=== PATIENT | female | born 1975 | race African-American/Black ===

== ENCOUNTER 2023-02-13 09:12 | Inpatient (IN) | payer SELFPAY ==
[~2023-02-13] VITALS: Ht 162.6 cm; Wt 65.8 kg
[2023-02-13] MEDS ORDERED: SODIUM CHLORIDE 0.9% 1,000 ML IV ONE (10:15)
[2023-02-13 13:27] LABS: BASOPHILS % 0.6 % (0.0-2.0); EOSINOPHILS % 2.5 % (0.0-5.0); HEMATOCRIT. 41.9 % (36.0-48.0); HEMOGLOBIN. 14.3 g/dL (12.0-16.0); LYMPHOCYTES % 28.7 % (20.0-50.0); MEAN CORPUSCULAR HEMOGLOBIN 30.8 pg (28.0-32.0); MEAN CORPUSCULAR VOLUME 90.2 fL (81.0-99.0); MEAN PLATELET VOLUME 8.3 fl (7.4-10.4); NEUTROPHILS % 61.2 % (40.0-76.0); PLATELET 392 x1000/uL (130-400); RED BLOOD CELL COUNT 4.64 mill/uL (4.2-5.4); RED CELL DISTRIBUTION WIDTH 15.1 % (11.6-14.6)
[2023-02-13 13:29] LABS: CHLORIDE 104 mEq/L (98-107)
[2023-02-13 13:42] LABS: HCG SCREEN NEGATIVE
[2023-02-13 14:05] LABS: ETHANOL BLOOD < 10 mg/dL
[2023-02-13] MEDS ORDERED: ZOLPIDEM TARTRATE 5MG TABLET PO PRN (14:30)
[2023-02-13] MEDS ORDERED: ACETAMINOPHEN 325MG TABLET PO PRN ×2 (14:30)
[2023-02-13] MEDS ORDERED: IPRATROPIUM/ALBUTEROL 0.5-3(2.5)MG/3ML NEB NEB PRN (14:30)
[2023-02-13] MEDS ORDERED: CLONIDINE 0.1MG TABLET PO PRN (14:30)
[2023-02-13] MEDS ORDERED: ONDANSETRON HCL 4MG/2ML INJ IV PRN (14:30)
[2023-02-13] MEDS ORDERED: DOCUSATE SODIUM 100MG CAPSULE PO PRN (14:30)
[2023-02-13] MEDS ORDERED: KETOROLAC 15MG/ML VIAL IV PRN (14:30)
[2023-02-13] MEDS ORDERED: GUAIFENESIN 200MG/10ML SUGAR FREE UDC PO PRN (14:30)
[2023-02-13] MEDS ORDERED: MAGNESIUM/ALUMINUM HYDROXIDE/SIMETHICONE 30ML UDC PO PRN (14:30)
[2023-02-13] MEDS ORDERED: NITROGLYCERIN 0.4MG TABLET SL SL PRN (14:45)
[2023-02-13 16:37] LABS: VITAMIN B12 SERUM 230 pg/mL (211-911)
[2023-02-13] MEDS: ENOXAPARIN 40MG/0.4ML SYR SUBCUT SCH (17:41)
[2023-02-13 18:09] LABS: T4 FREE 1.43 ng/dL (0.76-1.46)
[2023-02-13 19:00] VITALS: BP 133/92
[2023-02-13] MEDS: FAMOTIDINE 20MG TABLET PO SCH (21:00)
[2023-02-14] MEDS: ASPIRIN 325MG EC TABLET PO SCH (09:00)
[2023-02-14] MEDS: FAMOTIDINE 20MG TABLET PO SCH ×2 (09:00→21:00)
[2023-02-14] MEDS: ENOXAPARIN 40MG/0.4ML SYR SUBCUT SCH (14:02)
[2023-02-14 20:00] VITALS: BP 136/88
[2023-02-15 08:00] VITALS: BP 139/76
[2023-02-15] MEDS: FAMOTIDINE 20MG TABLET PO SCH ×2 (09:36→20:46)
[2023-02-15] MEDS: ASPIRIN 325MG EC TABLET PO SCH (09:36)
[2023-02-15] MEDS: ENOXAPARIN 40MG/0.4ML SYR SUBCUT SCH (14:30)
[2023-02-15 15:46] VITALS: BP 125/75
[2023-02-15 20:01] VITALS: BP 131/72
[2023-02-15] MEDS ORDERED: FOLIC ACID 1 MG in SODIUM CHLORIDE 0.9% 500 ML IV NR (21:30)
[2023-02-16 08:00] VITALS: BP 155/103
[2023-02-16] MEDS: FAMOTIDINE 20MG TABLET PO SCH (08:25)
[2023-02-16] MEDS: ENOXAPARIN 40MG/0.4ML SYR SUBCUT SCH (08:25)
[2023-02-16] MEDS: ASPIRIN 325MG EC TABLET PO SCH (08:25)
[2023-02-16] MEDS ORDERED: FOLIC ACID 1MG TABLET PO SCH (09:00)
[2023-02-16 10:45] VITALS: BP 20/120
== END 2023-02-16 11:00 | disposition home or self-care (01) | DRG 52 ==
LOC: ER 09:12 → 7WST 12:49 → ER 18:44
PROVIDERS: ADMIT Psychiatry & Neurology Neurology; ATTEND Internal Medicine
DX: G92.8 Other toxic encephalopathy (principal); E44.1 Mild protein-calorie malnutrition; E88.09 Other disorders of plasma-protein metabolism, not elsewhere classified; Z68.24 Body mass index [BMI] 24.0-24.9, adult
CPT/HCPCS: 36415; 71045; 80053; 80061; 80320; 82607; 82746; 83036; 83540; 83550; 84145; 84439; 84443; 84484; 84703; 85025; 93005; 93970; 99285; J1650; J3490; J7030; J7040; G0480